=== PATIENT | male | born 1935 | race African-American/Black ===

== ENCOUNTER 2018-09-08 10:34 | Inpatient (IN) | payer MEDICARE, OTHER ==
[~2018-09-08] VITALS: Ht 188 cm; Wt 87.7 kg
[2018-09-08] VITALS (466 sets, daily range): BP systolic 132–164; BP diastolic 103–132; PULSE 87–124; TEMP 97.9–98.6; O2SAT 44–100
[2018-09-08] MEDS ORDERED: PRINIVIL40 MG PO (11:52)
[2018-09-08] MEDS ORDERED: ZYLOPRIM 100MG100 MG PO (11:52)
--- NOTE | 2018-09-08 12:35 | NUR ---
RECEIVED PATIENT FROM EMS. ASSESSED PATIENT AND GOT PATIENT SETTLED. PATIENTS ADMISSION IS COMPLETE. PATIENT IS RESTING IN BED TALKING WITH HIS FRIEND. WILL CONTINUE TO MONITOR PATIENT.
[2018-09-08 12:59] LABS: BASO % 0.3 % (0.0-2.0); EOS # 0.1 (0.0-0.7); EOS % 0.7 % (0-4.0); GRAN # 6.1 (1.4-6.5); GRAN % 66.3 % (42.2-75.2); HEMATOCRIT 38.7 % (42.0-52.0); HEMOGLOBIN 12.9 g/dl (13.5-18.0); LYMPH # 2.2 (1.2-3.4); LYMPH % 24.4 % (20.0-51.0); MEAN CELL VOLUME 88 fl (80.0-100.0); MEAN CORPUSCULAR HEMOGLOBIN 30 pg (27.0-31.0); MEAN CORPUSCULAR HGB CONC 33 g/dl (33.0-37.0); MEAN PLATELET VOLUME 10.1 fl (7.4-10.4); MONO # 0.7 (0.1-0.6); PLATELET COUNT 235 K/mm3 (130-400); RED BLOOD COUNT 4.38 M/mm3 (4.20-5.60); REDCELL DISTRIBUTION WIDTH-CV 15.7 % (11.5-14.5)
[2018-09-08 13:01] LABS: INR 1.2 (0.8-3.0); PROTHROMBIN TIME 13.3 SECONDS (9.7-12.8)
[2018-09-08 13:14] LABS: CALCIUM 9.1 mg/dL (8.4-10.2); CREATININE, serum 1.35 mg/dL (0.66-1.25); POTASSIUM 3.6 mmol/L (3.4-5.0)
--- NOTE | 2018-09-08 14:25 | NUR ---
PATIENT RECEIVED 6 MG OF VERSED AND 50 MCG OF FENTANYL. PATIENT IS RESTING IN BED.
[2018-09-08 18:11] LABS: MAGNESIUM 1.8 mg/dL (1.6-2.3)
[2018-09-08 18:24] LABS: TROPONIN-I < 0.012 ng/mL (0.000-0.035)
--- NOTE | 2018-09-08 18:29 | NUR ---
Patient is currently resting in bed playing on his phone. Denies any pain at this time.
--- NOTE | 2018-09-08 19:05 | NUR ---
Gave report to SHONDA Serna. Patient was resting in bed watching TV.
--- NOTE | 2018-09-08 19:57 | NUR ---
Resting in bed. Assessment complete. Lungs clear. Heart sounds irregular and tachycardic. Bowels active x4. Bilateral lower leg edema +1. Denies any pain at this time. Blood pressure elevated at 180/103, repositioned blood pressure cuff, now 157/110. PRN hydralazine order for blood pressure above 180/120. Will closely monitor. Denies any needs at this time. Call light in reach.
--- NOTE | 2018-09-08 20:51 | NUR ---
Blood pressure 164/117. Received one time dose for hydralazine from [facility].
--- NOTE | 2018-09-08 21:13 | NUR ---
Patient reports SOA. "Feels like someone sat on my wind pipe." VS taken. Blood pressure remains elevated. Placed on 2 liters via nasal cannula. Patient reports helps SOA. Saturations 98-100%. Will closely monitor. [facility] CHILD CARE ASSOCIATE TEACHER aware.
--- NOTE | 2018-09-08 21:48 | NUR ---
Reports anxiety and inability to rest. Contacted Jose Alejandro NAVARRO for x1 order for seroquel 25mg. Provided to patient. Will monitor.
--- NOTE | 2018-09-08 23:07 | NUR ---
Patient continues to report SOA with periods of anxiety when patient feels unable to breathe. Updated [facility], BLOCK ENGRAVER. Verbal order for duoneb PRN given. Will contact respiratory and monitor closely.
[2018-09-09] VITALS (283 sets, daily range): BP systolic 119–159; BP diastolic 63–145; PULSE 76–115; TEMP 97.5–98.8; O2SAT 44–100
--- NOTE | 2018-09-09 00:14 | NUR ---
pt stated he felt short of breath tx done. after tx pt states he doesnt feel like it helped.
--- NOTE | 2018-09-09 02:23 | NUR ---
Resting in bed. Reports "feeling better." Assisted with repositioning. Denies other needs. Call light in reach.
--- NOTE | 2018-09-09 04:10 | NUR ---
Assisted with urinal at bedside. Denies any pain or discomfort. Denies needs. Call light in reach.
[2018-09-09 05:21] LABS: BASO % 0.4 % (0.0-2.0); EOS # 0.1 (0.0-0.7); EOS % 0.5 % (0-4.0); GRAN # 7.1 (1.4-6.5); GRAN % 69.5 % (42.2-75.2); HEMATOCRIT 40.2 % (42.0-52.0); HEMOGLOBIN 13.4 g/dl (13.5-18.0); LYMPH # 2.2 (1.2-3.4); LYMPH % 21.6 % (20.0-51.0); MEAN CELL VOLUME 88 fl (80.0-100.0); MEAN CORPUSCULAR HEMOGLOBIN 29 pg (27.0-31.0); MEAN CORPUSCULAR HGB CONC 33 g/dl (33.0-37.0); MEAN PLATELET VOLUME 10.1 fl (7.4-10.4); MONO # 0.8 (0.1-0.6); MONO % 7.7 % (1.7-9.3); PLATELET COUNT 245 K/mm3 (130-400); RED BLOOD COUNT 4.56 M/mm3 (4.20-5.60); REDCELL DISTRIBUTION WIDTH-CV 15.7 % (11.5-14.5)
[2018-09-09 05:37] LABS: CALCIUM 9.4 mg/dL (8.4-10.2); CREATININE, serum 1.25 mg/dL (0.66-1.25); POTASSIUM 3.9 mmol/L (3.4-5.0)
--- NOTE | 2018-09-09 05:46 | NUR ---
PT ASKED FOR TX EARLY. PT ON RA.
--- NOTE | 2018-09-09 05:51 | NUR ---
Blood pressure 159/132. Provided PRN hydralazine. Will monitor.
--- NOTE | 2018-09-09 06:40 | NUR ---
Blood pressure remains hypertensive throughout shift. Currently 142/118. Hospitalist, Bernadette aware. Provided PRN hydralazine as ordered. Shortness of breath and discomfort resolved with duoneb treatments and oxygen for comfort. Saturations remain above 98%. On room air this AM. No other complaints of pain throughout night. Resting in bed, watching television this AM. Denies needs. Call light in reach.
--- NOTE | 2018-09-09 07:25 | NUR ---
Pt off unit for Stress Test
--- NOTE | 2018-09-09 08:57 | NUR ---
IRWIN Lee on unit - Notified of: high dialstolic BP readings overnight, observed dyspnea with pt stating "I feel short of breath, making me feel bad", negative Homans Sign negative, no pain or redness in bilateral lower and upper extremities.
--- NOTE | 2018-09-09 10:27 | NUR ---
IRWIN Lee notified pt has returned from StressTest
--- NOTE | 2018-09-09 10:45 | NUR ---
SW met with the patient to discuss discharge plan. The patient lives in [place] with his daughter, Grant. He reports independence with ADLs and does not use any DME. [facility] [place] [facility] and [facility] The patient does not have advanced directives in EMR, but he states that he does have them completed and that his DPOA-HC is his daughter, Grant. The patient was down as self pay. The patient provided SW with his Medicare and Card. SW to provide to financial counselor, Ruth Ann. The patient plans to return home with his daughter upon discharge. No indentified needs at this time, but SW to continue to follow.
--- NOTE | 2018-09-09 13:33 | NUR ---
Report phoned to SHONDA Barajas
--- NOTE | 2018-09-09 15:15 | NUR ---
Pt alert and oriented. Pt report received from Jovanny from ICU. Pt oriented to room and sitting in chair at bedside at this time. Pt denies pain or SOB at rest. Pt HR remains tachy and afib. Pt instructed to call for help to get up for fall precaution. Pt medications reviewed with pt. Pt denies needs at this time. Pt given warm blanket. Friends at bedside at this time.
--- NOTE | 2018-09-09 17:25 | NUR ---
Pt resting in bed and alert. Pt remains in AFIB in the 90's to 120's without symptoms at this time. HR increases with activity but goes down with rest. Pt denies SOB or pain. Pt has call light in reach and denies needs at this time. Pt consent received for cardioversion on 09/10/18.
--- NOTE | 2018-09-09 19:03 | NUR ---
Pt resting in chair alert and oriented. BP was rechecked and 132/95 so no Hydralazine administered. Pt has call light in reach and denies chest pain or SOB. Report given to Poonam MERCHANT.
--- NOTE | 2018-09-09 20:13 | NUR ---
Patient resting in bed watching tv. Assessment completed, denies pain. Patient still in a-fib, planning on having cardioversion tomorrow and stress test. Patient educated on NPO after midnight. IV site INT'd, free of complications, no redness/edema. No further needs at this time.
[2018-09-10 03:32] VITALS: BP 141/73; PULSE 53; TEMP 98.4
[2018-09-10 06:09] LABS: BASO % 0.3 % (0.0-2.0); EOS % 0.4 % (0-4.0); GRAN # 6.5 (1.4-6.5); GRAN % 66.2 % (42.2-75.2); HEMATOCRIT 37.4 % (42.0-52.0); HEMOGLOBIN 12.6 g/dl (13.5-18.0); LYMPH # 2.3 (1.2-3.4); LYMPH % 23.2 % (20.0-51.0); MEAN CELL VOLUME 88 fl (80.0-100.0); MEAN CORPUSCULAR HEMOGLOBIN 30 pg (27.0-31.0); MEAN CORPUSCULAR HGB CONC 34 g/dl (33.0-37.0); MONO % 9.6 % (1.7-9.3); PLATELET COUNT 250 K/mm3 (130-400); RED BLOOD COUNT 4.27 M/mm3 (4.20-5.60); REDCELL DISTRIBUTION WIDTH-CV 15.5 % (11.5-14.5)
[2018-09-10 06:23] LABS: CREATININE, serum 1.55 mg/dL (0.66-1.25); MAGNESIUM 1.8 mg/dL (1.6-2.3); POTASSIUM 3.6 mmol/L (3.4-5.0)
--- NOTE | 2018-09-10 06:28 | NUR ---
Pt slept for most of the night. VSS, afebrile. Still in a-fib, planning for cardioversion this morning. COnsent signed. NO further needs at this tiem.
[2018-09-10 07:17] VITALS: BP 122/96; PULSE 60; TEMP 98.3
--- NOTE | 2018-09-10 07:30 | NUR ---
Report given to SHONDA Beavers. Patient asleep at this time.
--- NOTE | 2018-09-10 08:45 | NUR ---
Assessment complete.patient awake,a/ox4.denies pain or discomfort at this time.LSCTA.breathing even and unlabored.patient to have cardioversion this morning.pt pulses palpable.flakeboard line tender equal and strong.Telemetry reading Afib with a rate of 80-110s.No other needs voiced at this time.call light in reach
--- NOTE | 2018-09-10 08:57 | NUR ---
CALL PLACED TO DR LAINEZ REGARDING QTc of 529.states to give pt Sotalol 80 mg po.
--- NOTE | 2018-09-10 09:40 | NUR ---
and team rounding on patient at this time.Some changes made to meds.will continue to monitor.call light in reach
--- NOTE | 2018-09-10 09:42 | NUR ---
PT GOING FOR A CARDIOVERSION AT THIS TIME.
[2018-09-10 10:20] VITALS: BP 145/95; PULSE 105
--- NOTE | 2018-09-10 10:22 | NUR ---
ALL SEDATION MEDICATIONS GIVEN WITH VERBAL ORDER FROM MD ALVARENGA. SEE MERGE FOR ADMIN TIMES. SEE MERGE FOR RASS AND MODERATE SEDATION ASSESSMENTS DURING AND POST PROCEDURE.
--- NOTE | 2018-09-10 10:56 | NUR ---
pt returned from cardioversion.resting in bed at this time.awake and communication.VSS.no needs voiced at this time.call light in reach
[2018-09-10 11:04] VITALS: BP 126/80; PULSE 117; TEMP 98.2
--- NOTE | 2018-09-10 11:07 | NUR ---
0730 Report from Rico MERCHANT 0800 Shift assessment complete patient resting in bed, telemetry on, IV R ac INT, no redness noted HR regular, SR at this time.Pt denies c/o pain. 0830 Notified Ruthann MERCHANT QTC level <500 noted value [address] Yates see chart for orders. Held medicine due to procedure 1000 Pt prepeard for Cardioversion procedure 1030 Pt returns from procedure resting in room VSS assessment unchanged.
--- NOTE | 2018-09-10 13:25 | NUR ---
SW and SW student attended clinical rounding. DC home is possible today. There are no anticipated dc needs at this time. Patient to dc home with daughter.
[2018-09-10 15:25] VITALS: BP 126/85; PULSE 119; TEMP 98.1
--- NOTE | 2018-09-10 15:50 | NUR ---
pt had nursing home physician assisting this RN today.Daily,Student nurse left at 1130.pt resting in bed.will continue to monitor.Pt started on Entresto and lisinopril discontinued per cardiology.Cardiology reports cardioversion was unsuccesful.will continue to monitor.call light in reach
--- NOTE | 2018-09-10 19:36 | NUR ---
Patient sitting in recliner, assessment completed, denies pain. Requesting warm blanket when getting evening medicaations. IV site INT'd, no redness/edema. Alert, oriented x4. No further needs at this time.
[2018-09-10 20:53] VITALS: BP 127/75; PULSE 112; TEMP 97.9
[2018-09-11] VITALS: BP 126/84; PULSE 81; TEMP 97.5
[2018-09-11 03:42] VITALS: BP 111/80; PULSE 104; TEMP 98.2
--- NOTE | 2018-09-11 05:14 | NUR ---
Patient slept most of the night. Vitals stable, no reports of pain. Telemetry box replaced during the night, signal not working well. No further needs at this tiem.
[2018-09-11 06:26] LABS: BASO % 0.2 % (0.0-2.0); EOS # 0.1 (0.0-0.7); EOS % 0.7 % (0-4.0); GRAN # 5.2 (1.4-6.5); GRAN % 57.7 % (42.2-75.2); HEMATOCRIT 37.3 % (42.0-52.0); HEMOGLOBIN 12.6 g/dl (13.5-18.0); LYMPH # 2.7 (1.2-3.4); LYMPH % 30.3 % (20.0-51.0); MEAN CELL VOLUME 88 fl (80.0-100.0); MEAN CORPUSCULAR HEMOGLOBIN 30 pg (27.0-31.0); MEAN CORPUSCULAR HGB CONC 34 g/dl (33.0-37.0); MEAN PLATELET VOLUME 10.8 fl (7.4-10.4); MONO % 10.9 % (1.7-9.3); PLATELET COUNT 227 K/mm3 (130-400); RED BLOOD COUNT 4.23 M/mm3 (4.20-5.60); REDCELL DISTRIBUTION WIDTH-CV 15.8 % (11.5-14.5)
[2018-09-11 06:43] LABS: CALCIUM 8.8 mg/dL (8.4-10.2); CREATININE, serum 1.52 mg/dL (0.66-1.25); MAGNESIUM 1.8 mg/dL (1.6-2.3); POTASSIUM 3.3 mmol/L (3.4-5.0)
--- NOTE | 2018-09-11 07:02 | NUR ---
Report given to SHONDA Marc and SHONDA Carlson. Patient resting in bed, no further needs at this time.
[2018-09-11 07:25] VITALS: BP 133/86; PULSE 85; TEMP 97.5
--- NOTE | 2018-09-11 09:07 | NUR ---
Initial visit; Patient thanked Couples Therapist for looking in on him and wishing him well. Patient stated that everyone in his immediate support system have been contacted and thanked Couples Therapist for offering to help.
--- NOTE | 2018-09-11 10:38 | NUR ---
Pt sitting in chair alert and oriented, breathing even and unlabored, denies shortness of breath. Pt denies any pain. Completed morning assessment and administered meds per emar. Pt on pot protocol, gave one tab. Pt denies any needs, call light in reach.
[2018-09-11 10:47] VITALS: BP 102/68; PULSE 74; TEMP 98.3
[2018-09-11] MEDS ORDERED: BETAPACE 80MG80 MG PO (14:48)
[2018-09-11] MEDS ORDERED: LASIX 20MG TABL20 MG PO (14:48)
[2018-09-11] MEDS ORDERED: ENTRESTO 24 MG1 EACH PO (14:49)
[2018-09-11] MEDS ORDERED: K-DUR20 MEQ PO (15:14)
[2018-09-11] MEDS ORDERED: ELIQUIS 2.5 PO (15:19)
[2018-09-11] MEDS ORDERED: ASPIRIN 81M81 MG/TA2 PO (15:21)
[2018-09-11] MEDS ORDERED: LIPITOR20 MG PO (15:30)
--- NOTE | 2018-09-11 16:22 | NUR ---
Pt given discharge instructions. All questions answered and paperwork signed. INT to RF removed, catheter tip intact no redness or swelling noted. Pt has all belongings. Pt taken out via wheelchair.
== END 2018-09-11 17:07 | disposition home or self-care (01) | DRG 308 ==
LOC: ICU 10:34 → MEDICAL 09-09 14:38 → SURG 09-10 09:51 → MEDICAL 09-10 09:59 → PEDS 09-10 09:59 → MEDICAL 09-11 17:07
PROVIDERS: Physician Assistant; ADMIT Hospitalist
PROC: 5A2204Z Restoration of Cardiac Rhythm, Single (ICD-10-PCS; principal; 2018-09-08)
PROC: 5A2204Z Restoration of Cardiac Rhythm, Single (ICD-10-PCS; 2018-09-10)
DX: I48.91 Unspecified atrial fibrillation (principal); I50.21 Acute systolic (congestive) heart failure; N17.9 Acute kidney failure, unspecified; I13.0 Hypertensive heart and chronic kidney disease with heart failure and stage 1 through stage 4 chronic kidney disease, or unspecified chronic kidney disease; I42.0 Dilated cardiomyopathy; I16.0 Hypertensive urgency; N18.9 Chronic kidney disease, unspecified; I08.1 Rheumatic disorders of both mitral and tricuspid valves; I27.20 Pulmonary hypertension, unspecified; E87.6 Hypokalemia; F17.210 Nicotine dependence, cigarettes, uncomplicated; Z85.46 Personal history of malignant neoplasm of prostate
CPT/HCPCS: 99222-AI; 99232-AI; 99233-AI; 99239; A9500; J0360; J1650; J2250; J2785; J3010

== ENCOUNTER 2018-09-22 07:51 | Day surgery (SDC) | payer MEDICARE, OTHER ==
[2018-09-22] VITALS (8 sets, daily range): BP systolic 123–157; BP diastolic 72–124; PULSE 61–91; TEMP 98.1–98.4
[~2018-09-22] VITALS: Ht 188 cm; Wt 89.0 kg
[~2018-09-22 07:51] MED LIST: ASPIRIN 81M81 MG/TA2 PO; BETAPACE 80MG80 MG PO; ELIQUIS 2.5 PO; ENTRESTO 24 MG1 EACH PO; K-DUR20 MEQ PO; LASIX 20MG TABL20 MG PO; LIPITOR20 MG PO; PRINIVIL40 MG PO; ZYLOPRIM 100MG100 MG PO
[2018-09-22 08:43] LABS: INR 1.3 (0.8-3.0); PROTHROMBIN TIME 15.3 SECONDS (9.7-12.8)
[2018-09-22 08:45] LABS: POTASSIUM 4.6 mmol/L (3.4-5.0)
[2018-09-22] MEDS ORDERED: BETAPACE 80MG80 MG PO (08:56)
[2018-09-22] MEDS ORDERED: LASIX 20MG TABL20 MG PO (08:57)
[2018-09-22] MEDS ORDERED: K-DUR20 MEQ PO (08:58)
[2018-09-22] MEDS ORDERED: ELIQUIS 2.5 PO (08:58)
[2018-09-22] MEDS ORDERED: ASPIRIN 81M81 MG/TA2 PO (08:59)
[2018-09-22] MEDS ORDERED: LIPITOR20 MG PO (08:59)
[2018-09-22] MEDS ORDERED: PRINIVIL20 MG PO (09:00)
[2018-09-22 09:18] LABS: THYROID STIMULATING HORMONE 1.37 uIU/mL (0.465-4.680)
--- NOTE | 2018-09-22 10:11 | NUR ---
ALL MEDICATIONS GIVEN WITH VERBAL ORDER AND READBACK WITH MD. SEE MERGE FOR ALL MEDICATION ADMIN TIMES. SEE MERGE FOR ALL RASS ASSESSMENTS DURING AND POST PROCEDURE.
--- NOTE | 2018-09-22 10:55 | NUR ---
Pt returned to EU 14 per bed s/p CV. Per dental laboratory technician report pt is still in A fib. Pt resting well, daughter at bedside.
[2018-09-22] MEDS ORDERED: PACERONE400 MG PO (11:57)
[2018-09-22] MEDS ORDERED: COREG 6.256.25 MG/TA PO (11:58)
--- NOTE | 2018-09-22 12:30 | NUR ---
Pt has ambulated and isabel PO intake s n/v. PIV removed from R FA with catheter intact.
--- NOTE | 2018-09-22 12:45 | NUR ---
Pt discharged per w/c by nurse with daughter.
== END 2018-09-22 14:07 | disposition home or self-care (01) ==
LOC: COL.CAR 07:51
PROVIDERS: Internal Medicine Cardiovascular Disease
DX: I48.91 Unspecified atrial fibrillation (principal); I10 Essential (primary) hypertension; M10.9 Gout, unspecified; I42.8 Other cardiomyopathies; I34.0 Nonrheumatic mitral (valve) insufficiency; I27.20 Pulmonary hypertension, unspecified; F17.210 Nicotine dependence, cigarettes, uncomplicated; Z79.01 Long term (current) use of anticoagulants; Z79.82 Long term (current) use of aspirin
CPT/HCPCS: J2250; J3010; J7030

== ENCOUNTER 2023-07-03 08:00 | Day surgery (SDC) | payer MEDICARE, OTHER ==
[~2023-07-03] VITALS: Ht 188 cm; Wt 69.0 kg
[~2023-07-03 08:00] MED LIST changes: +COREG 6.256.25 MG/TA PO; +PACERONE400 MG PO; +PRINIVIL20 MG PO
[2023-07-03 09:04] VITALS: BP 92/49; PULSE 80; TEMP 97.4
[2023-07-03 09:34] LABS: CALCIUM 7.8 mg/dL (8.4-10.2); CREATININE, serum 8.47 mg/dL (0.72-1.25); POTASSIUM 4.7 mmol/L (3.5-4.5)
[2023-07-03] MEDS ORDERED: GAS RELIEF 8080 MG PO (09:39)
[2023-07-03] MEDS ORDERED: DITROPAN XL10 MG PO (09:46)
[2023-07-03] MEDS ORDERED: VITAMIN C500 MG PO (09:51)
[2023-07-03] MEDS ORDERED: FLOMAX 0.40.4 MG/CAP PO (09:52)
[2023-07-03] MEDS ORDERED: PACERONE200 MG PO (09:55)
[2023-07-03] MEDS ORDERED: COREG12.5 MG PO (09:57)
[2023-07-03] MEDS ORDERED: PRINIVIL10 MG PO (09:58)
[2023-07-03] MEDS ORDERED: FERROUS SU325 MG/TAB PO (10:00)
--- NOTE | 2023-07-03 10:02 | NUR ---
0943: LAB CALLED WITH CRITICAL RESULT CO2 OF 8. DR. ANDINO NOTIFIED. NO NEW ORDERS RECEIVED.
[2023-07-03] MEDS ORDERED: NORCO 325 MG-51 TAB PO (11:25)
[2023-07-03 11:55] VITALS: BP 89/46; PULSE 121; TEMP 97.5
[2023-07-03 12:10] VITALS: BP 96/57; PULSE 91
[2023-07-03 12:25] VITALS: BP 98/50; PULSE 87
[2023-07-03 12:43] VITALS: BP 103/60; PULSE 91
--- NOTE | 2023-07-03 13:21 | NUR ---
1155-REPORT OBTAINED FROM SHONDA AUGUST. PATIENT ARRIVED VIA CART TO [facility] [facility] [facility], DROWSY BUT RESPONSIVE ON ARRIVAL. FAMILY MEMBER AT BEDSIDE. VITAL SIGNS TAKEN, VSS. PATIENT DENIES PAIN OR NAUEA, TOLERATING PO ICE CHIPS WITHOUT COMPLAINT. INCISION SITES CDI. 1210-VSS. DENIES COMPLAINTS, TOLERATING PO LIQUIDS WELL. 1235-DISCHARGE INSTRUCTIONS REVIEWED WITH PT AND FAMILY MEMBER, QUESTIONS INVITED. PATIENT ASSISTED TO SITTING POSITION. IV CATHETER DISCONTINUED, TIP INTACT. PRESSURE BANDAGE APPLIED. PATIENT ASSISTED WITH CHANGING CLOTHING, INCISION SITES REMAIN CDI. 1250-PATIENT DISCHARGED HOME TO [facility] VIA WHEELCHAIR, ACCOMPANIED BY SON. ALL BELONGINGS AND DC PAPERWORK SENT WITH PT.
== END 2023-07-03 12:50 | disposition home or self-care (01) ==
LOC: SDCO 08:00
PROVIDERS: Surgery
DX: K40.90 Unilateral inguinal hernia, without obstruction or gangrene, not specified as recurrent (principal); N18.5 Chronic kidney disease, stage 5; I12.0 Hypertensive chronic kidney disease with stage 5 chronic kidney disease or end stage renal disease; I48.0 Paroxysmal atrial fibrillation; F17.210 Nicotine dependence, cigarettes, uncomplicated; Z79.01 Long term (current) use of anticoagulants
CPT/HCPCS: C1750; C1781; J0690; J1100; J1885; J2371; J2405; J3010; J7030

== ENCOUNTER 2023-09-10 12:03 | Day surgery (SDC) | payer MEDICARE, OTHER ==
[~2023-09-10] VITALS: Ht 188 cm; Wt 80.5 kg
[~2023-09-10 12:03] MED LIST changes: +ASPIRIN E.C. 8181 MG PO; +BACTROBAN15 GM TOP; +COREG12.5 MG PO; +DITROPAN XL10 MG PO; +DULCOLAX TAB5 MG PO; +FERROUS SU325 MG/TAB PO; +FLOMAX 0.40.4 MG/CAP PO; +GAS RELIEF 8080 MG PO; +GENTAMICIN30GROINT TOP; +LR 1,000 ML IV SCH; +MIRALAX PA17 GM/Dose PO; +NORCO 325 MG-51 TAB PO; +PACERONE200 MG PO; +PRESERVISION1 SGL PO; +PRINIVIL10 MG PO; +PROAMATINE 5MG T5 MG PO; +TYLENOL 325MG325 MG PO; +VITAMIN C500 MG PO
[2023-09-10 13:52] VITALS: BP 117/82; PULSE 94; TEMP 98.2
[2023-09-10] MEDS ORDERED: PACERONE100 MG PO (13:56)
[2023-09-10] MEDS ORDERED: VTAMINC250TA (14:06)
[2023-09-10] MEDS ORDERED: MASON NATURAL2000 IU PO (14:07)
[2023-09-10] MEDS ORDERED: Lidocaine PF 2% (20 MG/ML) 5 ML VIAL ONE (14:47)
[2023-09-10] MEDS ORDERED: Rocuronium 50 MG/5 ML Multi-Dose VIAL ONE (14:47)
[2023-09-10 15:04] LABS: CALCIUM 7.2 mg/dL (8.4-10.2); CREATININE, serum 6.17 mg/dL (0.72-1.25); POTASSIUM 4.2 mmol/L (3.5-4.5)
[2023-09-10] MEDS ORDERED: fentaNYL 50 MCG/ML 2 ML VIAL ONE (15:20)
[2023-09-10] MEDS ORDERED: Topical Skin Adhesive 1 EACH (1 ML) TOP ONE (16:00)
[2023-09-10] MEDS ORDERED: Naloxone 0.4 MG/ML VIAL ONE (16:06)
[2023-09-10] MEDS ORDERED: Ondansetron 4 MG/2 ML VIAL IV PRN ×2 (16:15→16:30)
[2023-09-10] MEDS ORDERED: Acetaminophen 325 MG TAB PO PRN (16:15)
[2023-09-10] MEDS ORDERED: fentaNYL 50 MCG/ML 2 ML VIAL IV PRN (16:30)
[2023-09-10] MEDS ORDERED: HYDROmorphone 2 MG/1 ML VIAL IV PRN (16:30)
[2023-09-10 16:50] VITALS: BP 119/73; PULSE 67; TEMP 97.7
[2023-09-10 17:05] VITALS: BP 121/72; PULSE 66
[2023-09-10 17:20] VITALS: BP 124/74; PULSE 68
[2023-09-10 17:26] VITALS: TEMP 98.3
[2023-09-10 17:35] VITALS: BP 122/69; PULSE 68
--- NOTE | 2023-09-10 19:05 | NUR ---
[id number]: PT TO [facility] FROM PACU S/P DIAGNOSTIC LAP A&O, PLACED ON MONITOR, VSS ON RA DENIES SIGNIFICANT PAIN, COMPLAINT, OR IMMEDIATE NEED. KINGSLEY RUBIO. RECEIVED REPORT AND ASSUMED CARE OF PT FROM SHONDA BOLDEN AT BEDSIDE PROVIDED FOOD/FLUIDS, TOLERATING WELL INFORMATION MANAGEMENT MANAGER IN TO ADMIN IV ABX - TOLERATED WITHOUT INCIDENT PT HAS REMAINED A&O, NAD, VSS ON RA, TOLERATING PO, IS WITHOUT SIGNIFICANT COMPLAINT, WITH STEADY GAIT BY END OF STAY IV D/C'D. D/C INSTRUCTIONS, PRN FOLLOW UP REVIEWED, HANDED TO PT. ALL QUESTIONS AND CONCERNS ADDRESSED TO PT SATISFACTION. TAKEN TO EXIT VIA W/C WITH ALL BELONGINGS AND PAPERWORK IN HAND, ASSISTED INTO PASSENGER SEAT OF POV. FAMILY TO DRIVE HOME.
== END 2023-09-10 18:00 | disposition home or self-care (01) ==
LOC: SDCO 12:03
PROVIDERS: Surgery
DX: I13.11 Hypertensive heart and chronic kidney disease without heart failure, with stage 5 chronic kidney disease, or end stage renal disease (principal); N18.6 End stage renal disease; T85.611A Breakdown (mechanical) of intraperitoneal dialysis catheter, initial encounter; I50.9 Heart failure, unspecified
CPT/HCPCS: J0690; J2310; J2704; J3010; J7120